=== PATIENT | female | born 1945 | race Caucasian/White ===

== ENCOUNTER 2017-07-29 22:30 | Emergency (ER) | payer MEDICARE, OTHER ==
[~2017-07-29] VITALS: Ht 152.4 cm; Wt 72.6 kg
[2017-07-29] MEDS ORDERED: NORVASC5 MG PO (22:39)
[2017-07-29] MEDS ORDERED: LISINOPRIL40 MG PO (22:39)
[2017-07-29] MEDS ORDERED: ARIMIDEX1 MG PO (22:39)
[2017-07-29] MEDS ORDERED: FENOFIBRATE160 MG PO (22:39)
[2017-07-29] MEDS ORDERED: PRAVACHOL20 MG PO (22:40)
[2017-07-29] MEDS ORDERED: METFORMIN HCL500 MG PO (22:40)
[2017-07-29 22:57] LABS: URINE BILIRUBIN NEGATIVE (Negative); URINE BLOOD TRACE (Negative); URINE CLARITY CLEAR; URINE COLOR ORANGE; URINE GLUCOSE-RANDOM NEGATIVE (Negative); URINE KETONES NEGATIVE (Negative); URINE LEUKOCYTES-REFLEX 3+ (Negative); URINE NITRITE-REFLEX POSITIVE (Negative); URINE PROTEIN NEGATIVE (Negative); URINE SPECIFIC GRAVITY <= 1.005 (1.005-1.030)
[2017-07-29] MEDS ORDERED: BACTRIM DS TAB1 EACH PO (23:09)
[2017-07-29] MEDS ORDERED: PYRIDIUM100 M1 PO (23:18)
[2017-07-29 23:28] VITALS: BP 115/88
[2017-07-30] LABS: CASTS None Seen /LPF (None Seen); SQUAMOUS 4-10 Moderate /LPF (0-3); URINE WBC-REFLEX >25 Many /HPF (0-5)
[2017-07-30 00:01] LABS: CRYSTALS None Seen /LPF (None Seen); URINE RBC 3-10 Few /HPF (0-2)
== END 2017-07-29 23:28 | disposition home or self-care (01) ==
LOC: M.ERS 22:30
PROVIDERS: Nurse Practitioner Family
DX: N39.0 Urinary tract infection, site not specified (principal); E11.9 Type 2 diabetes mellitus without complications; I10 Essential (primary) hypertension; E78.00 Pure hypercholesterolemia, unspecified